=== PATIENT | female | born 1975 | race Caucasian/White ===

== ENCOUNTER → 2016-07-31 | Outpatient (CLI) | payer OTHER ==
[~2016-07-31] MED LIST: COLACE100 MG PO; IRON325 M1 PO; LAN-O-SOOTHE7 GM TOP; MOTRIN800 MG PO; NORCO 325-5 MG1 TAB PO; PRENATAL PLUS I1 TAB PO
== END | disposition short-term general hospital (02) ==
LOC: CLOBGYN 08:22
DX: N92.6 Irregular menstruation, unspecified (principal)